=== PATIENT | male | born 1960 | race African-American/Black ===

== ENCOUNTER 2021-07-09 00:33 | Inpatient (IN) | payer OTHER ==
[2021-07-09] MEDS ORDERED: Ondansetron PF 4 MG/2 ML Vial IVP PRN (03:09)
[2021-07-09] MEDS ORDERED: Ondansetron ODT 4 MG TAB PO PRN (03:09)
[2021-07-09 03:28] VITALS: BMI 21.2
[2021-07-09] MEDS ORDERED: VANCOMYCIN 1.25 GM/250 ML BAG 1.25 GM in Premix Bag 1 BAG IVPB SCH (04:00)
[2021-07-09] MEDS ORDERED: Cefepime 2 GM in Sodium Chloride 0.9% 100 ML IVPB SCH (04:00)
[2021-07-09] MEDS ORDERED: Electrolyte Replacement Protocol 1 EACH FS PRN (04:15)
[2021-07-09 04:46] LABS: #Eosinphils 0.4 thou/uL (0.0-0.7); #Lymphocytes 1.3 thou/uL (1.20-3.40); #Monocytes 0.7 thou/uL (0.11-0.59); #Neutrophils 2.6 thou/uL (1.40-6.50); %Basophils 0.7 % (0.0-1.0); %Eosinophils 7.6 % (0.0-10.0); %Lymphocytes 25.7 % (21.0-51.0); %Monocytes 14.6 % (0.0-10.0); %Neutrophils 51.4 % (42.0-75.0); Hemoglobin 10.3 g/dL (14.0-18.0); Mean Corpuscular HGB CONC 32.3 g/dL (32.0-36.0); Mean Corpuscular Volume 99.2 fL (78.0-98.0); Mean Platelet Volume 6.9 fL (7.4-10.4); Platelet Count 269 thou/uL (130-400); RBC Distribution Width 14.7 % (11.5-14.5); Red Blood Cell (RBC) Count 3.22 mill/uL (4.70-6.10); White Blood Cell (WBC) Count 5.1 thou/uL (4.8-10.8)
[2021-07-09 05:02] LABS: Phosphorus 3.9 mg/dL (2.3-4.7)
[2021-07-09 05:03] LABS: Anion Gap 12 mmol/L (10-20); BUN (Urea Nitrogen) 7 mg/dL (8.4-25.7); CRP (Inflammatory) 1.83 mg/dL (= or < 0.5); Calc. Creatinine Clearance 110 mL/min (70-130); Calcium 9.5 mg/dL (7.8-10.44); Carbon Dioxide 25 mmol/L (23-31); Chloride 99 mmol/L (98-107); Glucose 131 mg/dL (80-115); Magnesium 1.5 mg/dL (1.6-2.6); Potassium 3.8 mmol/L (3.5-5.1); Sodium 132 mmol/L (136-145)
[2021-07-09] MEDS ORDERED: Magnesium 2 GM/50 ML 2 GM in Premix Bag 1 BAG IVPB SCH (05:30)
[2021-07-09] MEDS ORDERED: FLU VACC QS2021-22(6MOS UP)/PF 60 MCG/0.5 ML SYRINGE IM ONE (09:00)
[2021-07-09 11:52] LABS: Bacteria/HPF None Seen HPF (None Seen); Bilirubin Negative (Negative); Blood, Urine Negative (Negative); Clarity Clear (Clear); Glucose, Urine (Dipstick) Normal (Negative); Ketone, Urine Negative (Negative); Leukocyte Negative Leu/uL (Negative); Nitrite Negative (Negative); Protein, Urine (Dipstick) Negative (Neg-Trace); RBC/HPF 0-3 HPF (0-3); Specific Gravity, Urine 1.014 (1.002-1.036); Squamous Epithelial 0-3 HPF (0-3); Urobilinogen Normal mg/dL (Less than 2); WBC/HPF 0-3 HPF (0-3)
[2021-07-09 11:55] LABS: Urine Culture Reflex No No
[2021-07-09 12:02] LABS: Amphetamine Not Detected (NotDetected); Barbiturates Screen Not Detected (NotDetected); Benzodiazepine Screen Not Detected (NotDetected); Cocaine Metabolite Screen Detected (NotDetected); Methadone Not Detected (NotDetected); Methamphetamine Not Detected (NotDetected); Opiate Screen Not Detected (NotDetected); Oxycodone Screen Not Detected (NotDetected); Phencyclidine (PCP) Not Detected (NotDetected); THC/Cannabinoid Screen Not Detected (NotDetected); Tricyclic Screen Not Detected (NotDetected)
[2021-07-09] MEDS: Cefepime 2 GM in Sodium Chloride 0.9% 100 ML IVPB SCH ×2 (12:23→21:14)
[2021-07-09] MEDS: Vancomycin 1 GM in Premix Bag 1 BAG IVPB SCH ×2 (13:52→21:15)
[2021-07-09 15:26] LABS: SARS-CoV-2 PCR by NAA Not Detected (NotDetected)
[2021-07-10] MEDS: Acetaminophen 325 MG TAB PO PRN ×2 (03:13→06:55)
[2021-07-10] MEDS ORDERED: Lorazepam 1 MG TAB PO PRN (04:01)
[2021-07-10] MEDS: Cefepime 2 GM in Sodium Chloride 0.9% 100 ML IVPB SCH ×3 (04:16→20:30)
[2021-07-10] MEDS: Vancomycin 1 GM in Premix Bag 1 BAG IVPB SCH ×4 (04:16→20:30)
[2021-07-10 05:25] LABS: Hemoglobin 10.4 g/dL (14.0-18.0); Mean Corpuscular HGB CONC 33.8 g/dL (32.0-36.0); Mean Corpuscular Hemoglobin 33.5 pg (27.0-31.0); Mean Corpuscular Volume 99.2 fL (78.0-98.0); Mean Platelet Volume 6.7 fL (7.4-10.4); Platelet Count 284 thou/uL (130-400); RBC Distribution Width 14.3 % (11.5-14.5); Red Blood Cell (RBC) Count 3.09 mill/uL (4.70-6.10); White Blood Cell (WBC) Count 5.6 thou/uL (4.8-10.8)
[2021-07-10 05:44] LABS: Anion Gap 8 mmol/L (10-20); BUN (Urea Nitrogen) 11 mg/dL (8.4-25.7); CRP (Inflammatory) 1.87 mg/dL (= or < 0.5); Calc. Creatinine Clearance 114 mL/min (70-130); Calcium 9.1 mg/dL (7.8-10.44); Carbon Dioxide 25 mmol/L (23-31); Chloride 99 mmol/L (98-107); Glucose 119 mg/dL (80-115); Magnesium 1.7 mg/dL (1.6-2.6); Potassium 4.3 mmol/L (3.5-5.1); Sodium 128 mmol/L (136-145)
[2021-07-10] MEDS ORDERED: Magnesium 2 GM/50 ML 2 GM in Premix Bag 1 BAG IVPB SCH (06:00)
[2021-07-10 06:09] LABS: Eosinophils 3 % (0-10); Lymphocytes 34 % (21-51); MDiff Complete? YES; Monocytes 18 % (0-10); Neutrophil 45 % (42-75)
[2021-07-10 06:17] LABS: Vancomycin, Trough 35.5 ug/mL
[2021-07-10] MEDS ORDERED: Morphine 2 MG/ML VIAL SLOW IVP PRN (08:23)
[2021-07-10] MEDS ORDERED: Morphine 4 MG/ML VIAL SLOW IVP PRN (08:27)
[2021-07-10] MEDS ORDERED: Gadobenate Dimeglumine 529 MG/1 ML (20ML VIAL) ONE (11:24)
[2021-07-10 12:44] LABS: Vancomycin, Trough 18.2 ug/mL
[2021-07-10] MEDS: Lidocaine 5% Patch TD SCH (13:58)
[2021-07-10] MEDS: tiZANidine HCl 4 MG TAB PO SCH (20:30)
[2021-07-11] MEDS: Cefepime 2 GM in Sodium Chloride 0.9% 100 ML IVPB SCH ×3 (04:17→21:11)
[2021-07-11] MEDS: Vancomycin 1 GM in Premix Bag 1 BAG IVPB SCH ×3 (04:18→21:11)
[2021-07-11] MEDS: Lidocaine Patch Removal TOP SCH (04:24)
[2021-07-11 06:15] LABS: Hemoglobin 10.5 g/dL (14.0-18.0); Mean Corpuscular HGB CONC 32.8 g/dL (32.0-36.0); Mean Corpuscular Hemoglobin 32.6 pg (27.0-31.0); Mean Corpuscular Volume 99.5 fL (78.0-98.0); Mean Platelet Volume 6.6 fL (7.4-10.4); Platelet Count 307 thou/uL (130-400); RBC Distribution Width 14.3 % (11.5-14.5); Red Blood Cell (RBC) Count 3.22 mill/uL (4.70-6.10); White Blood Cell (WBC) Count 5.1 thou/uL (4.8-10.8)
[2021-07-11 06:39] LABS: Anion Gap 12 mmol/L (10-20); BUN (Urea Nitrogen) 10 mg/dL (8.4-25.7); Calc. Creatinine Clearance 110 mL/min (70-130); Calcium 9.3 mg/dL (7.8-10.44); Carbon Dioxide 23 mmol/L (23-31); Chloride 95 mmol/L (98-107); Glucose 99 mg/dL (80-115); Sodium 126 mmol/L (136-145)
[2021-07-11] MEDS: HYDROcodone/Acetaminophen 5/325 mg Tablet PO PRN (09:25)
[2021-07-11] MEDS: tiZANidine HCl 4 MG TAB PO SCH ×2 (09:25→21:11)
[2021-07-11] MEDS: Lidocaine 5% Patch TD SCH (09:29)
[2021-07-11 10:43] LABS: Band 1 % (5-11); Eosinophils 9 % (0-10); Lymphocytes 32 % (21-51); MDiff Complete? YES; Monocytes 15 % (0-10); Neutrophil 42 % (42-75); Platelet Morphology Comment Appears Adequate; Polychromasia SLIGHT = 2-3 cells (100X) (0-2/hpf)
[2021-07-11] MEDS ORDERED: Sodium Chloride 0.9% 1,000 ML IV SCH (12:45)
[2021-07-11 17:54] LABS: Potassium, Urine 30.4 mmol/L
[2021-07-12] MEDS: Lidocaine Patch Removal TOP SCH (03:54)
[2021-07-12] MEDS: Vancomycin 1 GM in Premix Bag 1 BAG IVPB SCH ×3 (04:27→20:14)
[2021-07-12] MEDS: Cefepime 2 GM in Sodium Chloride 0.9% 100 ML IVPB SCH ×3 (04:27→20:13)
[2021-07-12 05:02] LABS: Anion Gap 11 mmol/L (10-20); BUN (Urea Nitrogen) 12 mg/dL (8.4-25.7); Calc. Creatinine Clearance 107 mL/min (70-130); Calcium 9.6 mg/dL (7.8-10.44); Carbon Dioxide 23 mmol/L (23-31); Chloride 94 mmol/L (98-107); Glucose 102 mg/dL (80-115); Potassium 4.5 mmol/L (3.5-5.1); Sodium 123 mmol/L (136-145)
[2021-07-12 05:05] LABS: Eosinophils 1 % (0-10); Hemoglobin 11.2 g/dL (14.0-18.0); Hypochromia SLIGHT = 6-15 cells (100X) (0-5/hpf); Lymphocytes 17 % (21-51); MDiff Complete? YES; Mean Corpuscular Hemoglobin 33.5 pg (27.0-31.0); Mean Corpuscular Volume 98.4 fL (78.0-98.0); Mean Platelet Volume 6.4 fL (7.4-10.4); Monocytes 15 % (0-10); Neutrophil 67 % (42-75); Platelet Count 338 thou/uL (130-400); Platelet Morphology Comment Appears Adequate; RBC Distribution Width 14.3 % (11.5-14.5); Red Blood Cell (RBC) Count 3.34 mill/uL (4.70-6.10); White Blood Cell (WBC) Count 4.4 thou/uL (4.8-10.8)
[2021-07-12] MEDS: tiZANidine HCl 4 MG TAB PO SCH ×2 (09:26→20:13)
[2021-07-12] MEDS: HYDROcodone/Acetaminophen 5/325 mg Tablet PO PRN (09:26)
[2021-07-12] MEDS: Lidocaine 5% Patch TD SCH (09:27)
[2021-07-12 11:15] LABS: ALT (SGPT) Less than 7 U/L (8-55); AST (SGOT) 15 U/L (5-34); Albumin 3.5 g/dL (3.4-4.8); Alkaline Phosphatase 59 U/L (40-110); Anion Gap 11 mmol/L (10-20); BUN (Urea Nitrogen) 13 mg/dL (8.4-25.7); Bilirubin, Total 0.2 mg/dL (0.2-1.2); Calc. Creatinine Clearance 110 mL/min (70-130); Calcium 9.4 mg/dL (7.8-10.44); Carbon Dioxide 23 mmol/L (23-31); Chloride 94 mmol/L (98-107); Glucose 116 mg/dL (80-115); Potassium 4.7 mmol/L (3.5-5.1); Protein, Total 7.5 g/dL (5.8-8.1); Sodium 123 mmol/L (136-145)
[2021-07-12] MEDS ORDERED: Tolvaptan 15 MG TAB PO SCH (12:00)
[2021-07-12] MEDS ORDERED: TOLVAPTAN 30 MG TAB PO SCH (12:45)
[2021-07-12] MEDS: Lorazepam 0.5 MG TAB PO PRN (13:13)
[2021-07-13] MEDS: Lidocaine Patch Removal TOP SCH (03:44)
[2021-07-13] MEDS: Cefepime 2 GM in Sodium Chloride 0.9% 100 ML IVPB SCH ×3 (04:48→20:49)
[2021-07-13] MEDS: Vancomycin 1 GM in Premix Bag 1 BAG IVPB SCH ×3 (04:50→20:49)
[2021-07-13 05:19] LABS: Anion Gap 13 mmol/L (10-20); BUN (Urea Nitrogen) 22 mg/dL (8.4-25.7); Calc. Creatinine Clearance 87 mL/min (70-130); Calcium 10.6 mg/dL (7.8-10.44); Carbon Dioxide 24 mmol/L (23-31); Chloride 99 mmol/L (98-107); Glucose 94 mg/dL (80-115); Potassium 4.2 mmol/L (3.5-5.1); Sodium 132 mmol/L (136-145)
[2021-07-13] MEDS: tiZANidine HCl 4 MG TAB PO SCH ×2 (09:05→20:49)
[2021-07-13] MEDS: HYDROcodone/Acetaminophen 5/325 mg Tablet PO PRN (09:05)
[2021-07-13 12:30] LABS: Vancomycin, Trough 14.6 ug/mL
[2021-07-13] MEDS: Lidocaine 5% Patch TD SCH (12:38)
[2021-07-13] MEDS: Nicotine 21 MG PATCH TD SCH (12:38)
[2021-07-14] MEDS: Lidocaine Patch Removal TOP SCH (01:32)
[2021-07-14] MEDS: Vancomycin 1 GM in Premix Bag 1 BAG IVPB SCH ×2 (05:04→13:05)
[2021-07-14] MEDS: Cefepime 2 GM in Sodium Chloride 0.9% 100 ML IVPB SCH ×3 (05:05→20:04)
[2021-07-14 05:57] LABS: Anion Gap 11 mmol/L (10-20); BUN (Urea Nitrogen) 15 mg/dL (8.4-25.7); Calc. Creatinine Clearance 101 mL/min (70-130); Calcium 10.3 mg/dL (7.8-10.44); Carbon Dioxide 24 mmol/L (23-31); Chloride 103 mmol/L (98-107); Glucose 102 mg/dL (80-115); Potassium 4.1 mmol/L (3.5-5.1); Sodium 134 mmol/L (136-145)
[2021-07-14] MEDS: tiZANidine HCl 4 MG TAB PO SCH ×2 (08:09→20:16)
[2021-07-14] MEDS: HYDROcodone/Acetaminophen 5/325 mg Tablet PO PRN (10:15)
[2021-07-14] MEDS: Lidocaine 5% Patch TD SCH (13:05)
[2021-07-14] MEDS: Nicotine 21 MG PATCH TD SCH (13:05)
[2021-07-14 20:20] LABS: Vancomycin, Trough 22.1 ug/mL
[2021-07-14] MEDS: Vancomycin HCl 750 MG in Sodium Chloride 0.9% 250 ML 250 ML IVPB SCH (21:51)
[2021-07-15] MEDS: Lidocaine Patch Removal TOP SCH (01:18)
[2021-07-15] MEDS: Cefepime 2 GM in Sodium Chloride 0.9% 100 ML IVPB SCH ×3 (04:57→19:54)
[2021-07-15 05:06] LABS: Anion Gap 9 mmol/L (10-20); BUN (Urea Nitrogen) 14 mg/dL (8.4-25.7); Calc. Creatinine Clearance 112 mL/min (70-130); Calcium 10.1 mg/dL (7.8-10.44); Carbon Dioxide 24 mmol/L (23-31); Chloride 101 mmol/L (98-107); Glucose 91 mg/dL (80-115); Potassium 3.9 mmol/L (3.5-5.1); Sodium 130 mmol/L (136-145)
[2021-07-15] MEDS: Vancomycin HCl 750 MG in Sodium Chloride 0.9% 250 ML 250 ML IVPB SCH ×3 (06:36→22:34)
[2021-07-15] MEDS: tiZANidine HCl 4 MG TAB PO SCH ×2 (09:47→19:54)
[2021-07-15] MEDS: Lidocaine 5% Patch TD SCH (13:34)
[2021-07-15] MEDS: Nicotine 21 MG PATCH TD SCH (13:34)
[2021-07-15 21:30] LABS: Vancomycin, Trough 17.6 ug/mL
[2021-07-16] MEDS: Lidocaine Patch Removal TOP SCH (01:12)
[2021-07-16] MEDS: Cefepime 2 GM in Sodium Chloride 0.9% 100 ML IVPB SCH ×3 (04:06→20:34)
[2021-07-16 05:00] LABS: Anion Gap 10 mmol/L (10-20); BUN (Urea Nitrogen) 14 mg/dL (8.4-25.7); Calc. Creatinine Clearance 110 mL/min (70-130); Calcium 9.9 mg/dL (7.8-10.44); Carbon Dioxide 24 mmol/L (23-31); Chloride 102 mmol/L (98-107); Glucose 98 mg/dL (80-115); Sodium 132 mmol/L (136-145)
[2021-07-16] MEDS: Vancomycin HCl 750 MG in Sodium Chloride 0.9% 250 ML 250 ML IVPB SCH ×3 (05:56→20:34)
[2021-07-16] MEDS: tiZANidine HCl 4 MG TAB PO SCH ×2 (08:37→20:34)
[2021-07-16] MEDS: Nicotine 21 MG PATCH TD SCH (12:40)
[2021-07-16] MEDS: Lidocaine 5% Patch TD SCH (12:40)
[2021-07-16 21:48] LABS: Vancomycin, Trough 23.3 ug/mL
[2021-07-16] MEDS: Vancomycin 1 GM in Premix Bag 1 BAG IVPB SCH (23:06)
[2021-07-17] MEDS: Lidocaine Patch Removal TOP SCH (04:12)
[2021-07-17] MEDS: Cefepime 2 GM in Sodium Chloride 0.9% 100 ML IVPB SCH ×3 (04:12→20:45)
[2021-07-17 08:03] LABS: SARS-CoV-2 PCR by NAA Not Detected (NotDetected)
[2021-07-17] MEDS: tiZANidine HCl 4 MG TAB PO SCH ×2 (08:45→20:45)
[2021-07-17] MEDS: HYDROcodone/Acetaminophen 5/325 mg Tablet PO PRN (08:45)
[2021-07-17] MEDS: Lidocaine 5% Patch TD SCH (12:57)
[2021-07-17] MEDS: Vancomycin 1 GM in Premix Bag 1 BAG IVPB SCH ×2 (12:58→20:45)
[2021-07-17] MEDS: Nicotine 21 MG PATCH TD SCH (13:00)
[2021-07-18] MEDS: Lidocaine Patch Removal TOP SCH ×2 (04:37→20:12)
[2021-07-18] MEDS: Cefepime 2 GM in Sodium Chloride 0.9% 100 ML IVPB SCH (04:38)
[2021-07-18 07:36] LABS: Hemoglobin 10.7 g/dL (14.0-18.0); Mean Corpuscular HGB CONC 33.5 g/dL (32.0-36.0); Mean Corpuscular Hemoglobin 32.4 pg (27.0-31.0); Mean Corpuscular Volume 96.6 fL (78.0-98.0); Mean Platelet Volume 6.4 fL (7.4-10.4); Platelet Count 333 thou/uL (130-400); RBC Distribution Width 13.9 % (11.5-14.5); Red Blood Cell (RBC) Count 3.31 mill/uL (4.70-6.10); White Blood Cell (WBC) Count 5.5 thou/uL (4.8-10.8)
[2021-07-18 08:00] LABS: Anion Gap 14 mmol/L (10-20); BUN (Urea Nitrogen) 14 mg/dL (8.4-25.7); Calc. Creatinine Clearance 108 mL/min (70-130); Calcium 10.2 mg/dL (7.8-10.44); Carbon Dioxide 23 mmol/L (23-31); Chloride 98 mmol/L (98-107); Glucose 103 mg/dL (80-115); Sodium 131 mmol/L (136-145)
[2021-07-18 08:07] LABS: Band 4 % (5-11); Eosinophils 15 % (0-10); Lymphocytes 32 % (21-51); MDiff Complete? YES; Monocytes 17 % (0-10); Neutrophil 31 % (42-75); Platelet Morphology Comment Appears Adequate; Polychromasia SLIGHT = 2-3 cells (100X) (0-2/hpf)
[2021-07-18] MEDS: Amoxicillin/Potassium Clav 875 MG TAB PO SCH ×2 (09:05→20:10)
[2021-07-18] MEDS: tiZANidine HCl 4 MG TAB PO SCH ×2 (09:05→20:10)
[2021-07-18] MEDS: Nicotine 21 MG PATCH TD SCH (12:46)
[2021-07-18] MEDS: Lidocaine 5% Patch TD SCH (12:52)
[2021-07-19] MEDS: Amoxicillin/Potassium Clav 875 MG TAB PO SCH ×2 (08:55→20:44)
[2021-07-19] MEDS: Lorazepam 0.5 MG TAB PO PRN ×3 (08:55→19:24)
[2021-07-19] MEDS: tiZANidine HCl 4 MG TAB PO SCH ×2 (08:55→20:44)
[2021-07-19] MEDS: Lidocaine 5% Patch TD SCH (13:53)
[2021-07-19] MEDS: Nicotine 21 MG PATCH TD SCH (13:53)
[2021-07-19] MEDS ORDERED: diphenhydrAMINE 25 MG CAP PO SCH (21:16)
[2021-07-20] MEDS: Lidocaine Patch Removal TOP SCH (04:45)
[2021-07-20] MEDS: Amoxicillin/Potassium Clav 875 MG TAB PO SCH (08:18)
[2021-07-20] MEDS: Lorazepam 0.5 MG TAB PO PRN (08:18)
[2021-07-20] MEDS: tiZANidine HCl 4 MG TAB PO SCH ×2 (08:18→20:58)
[2021-07-20] MEDS: diphenhydrAMINE 25 MG CAP PO PRN ×2 (11:20→19:11)
[2021-07-20] MEDS: Lidocaine 5% Patch TD SCH (13:28)
[2021-07-20] MEDS: Nicotine 21 MG PATCH TD SCH (14:19)
[2021-07-20 15:27] LABS: ALT (SGPT) 13 U/L (8-55); AST (SGOT) 15 U/L (5-34); Albumin 3.7 g/dL (3.4-4.8); Alkaline Phosphatase 60 U/L (40-110); Bilirubin, Direct 0.1 mg/dL (0.1-0.3); Bilirubin, Total Less than 0.2 mg/dL (0.2-1.2); Protein, Total 7.7 g/dL (5.8-8.1)
[2021-07-20] MEDS: Sodium Chloride 0.9% 1,000 ML IV SCH (16:10)
[2021-07-21] MEDS: diphenhydrAMINE 25 MG CAP PO PRN ×3 (00:38→18:08)
[2021-07-21] MEDS: Lidocaine Patch Removal TOP SCH (00:40)
[2021-07-21] MEDS: Lorazepam 0.5 MG TAB PO PRN ×2 (03:04→20:05)
[2021-07-21] MEDS ORDERED: Loratadine 10 MG TAB PO SCH (08:30)
[2021-07-21] MEDS: tiZANidine HCl 4 MG TAB PO SCH ×2 (09:02→20:05)
[2021-07-21 10:27] LABS: Sodium 130 mmol/L (136-145)
[2021-07-21 10:31] LABS: Band 1 % (5-11); Eosinophils 8 % (0-10); Hemoglobin 10.6 g/dL (14.0-18.0); Lymphocytes 51 % (21-51); MDiff Complete? YES; Mean Corpuscular HGB CONC 33.5 g/dL (32.0-36.0); Mean Corpuscular Hemoglobin 32.6 pg (27.0-31.0); Mean Corpuscular Volume 97.2 fL (78.0-98.0); Mean Platelet Volume 6.4 fL (7.4-10.4); Monocytes 13 % (0-10); Neutrophil 25 % (42-75); Platelet Count 316 thou/uL (130-400); RBC Distribution Width 13.8 % (11.5-14.5); Red Blood Cell (RBC) Count 3.27 mill/uL (4.70-6.10); White Blood Cell (WBC) Count 4.1 thou/uL (4.8-10.8)
[2021-07-21] MEDS: Nicotine 21 MG PATCH TD SCH (13:44)
[2021-07-21] MEDS: Gabapentin 100 MG CAP PO SCH ×3 (13:51→20:06)
[2021-07-21] MEDS: Sodium Chloride 0.9% 1,000 ML IV SCH (14:15)
[2021-07-21] MEDS: Lidocaine 5% Patch TD SCH (14:30)
[2021-07-21] MEDS: Acetaminophen 325 MG TAB PO PRN (18:09)
[2021-07-22] MEDS: diphenhydrAMINE 25 MG CAP PO PRN ×2 (00:39→08:46)
[2021-07-22] MEDS: Lorazepam 0.5 MG TAB PO PRN (00:39)
[2021-07-22] MEDS: Lidocaine Patch Removal TOP SCH (00:53)
[2021-07-22] MEDS: Sodium Chloride 0.9% 1,000 ML IV SCH ×2 (08:39→22:49)
[2021-07-22] MEDS: tiZANidine HCl 4 MG TAB PO SCH ×2 (08:46→20:02)
[2021-07-22] MEDS: Gabapentin 100 MG CAP PO SCH ×3 (08:46→20:01)
[2021-07-22] MEDS ORDERED: Loratadine 10 MG TAB PO PRN (09:00)
[2021-07-22] MEDS: Nicotine 21 MG PATCH TD SCH (13:55)
[2021-07-22] MEDS: Lidocaine 5% Patch TD SCH (13:55)
[2021-07-23] MEDS: Lidocaine Patch Removal TOP SCH (00:59)
[2021-07-23] MEDS: Gabapentin 100 MG CAP PO SCH ×3 (08:03→20:41)
[2021-07-23] MEDS: tiZANidine HCl 4 MG TAB PO SCH ×2 (08:03→20:41)
[2021-07-23] MEDS: Thiamine 100 MG TAB PO SCH (09:30)
[2021-07-23] MEDS: Lidocaine 5% Patch TD SCH (13:35)
[2021-07-23] MEDS: Nicotine 21 MG PATCH TD SCH ×2 (13:35→21:53)
[2021-07-24] MEDS: Lidocaine Patch Removal TOP SCH (01:01)
[2021-07-24] MEDS: tiZANidine HCl 4 MG TAB PO SCH ×2 (08:36→20:16)
[2021-07-24] MEDS: Gabapentin 100 MG CAP PO SCH ×3 (08:36→20:15)
[2021-07-24] MEDS: Thiamine 100 MG TAB PO SCH (08:36)
[2021-07-24] MEDS: Lidocaine 5% Patch TD SCH (13:51)
[2021-07-24] MEDS: Nicotine 21 MG PATCH TD SCH (13:51)
[2021-07-24] MEDS: Acetaminophen 325 MG TAB PO PRN (20:15)
[2021-07-25] MEDS: Lidocaine Patch Removal TOP SCH (00:22)
[2021-07-25] MEDS: diphenhydrAMINE 25 MG CAP PO PRN ×2 (03:37→09:45)
[2021-07-25] MEDS: Gabapentin 100 MG CAP PO SCH ×3 (08:03→21:03)
[2021-07-25] MEDS: Thiamine 100 MG TAB PO SCH (08:03)
[2021-07-25] MEDS: tiZANidine HCl 4 MG TAB PO SCH ×2 (08:03→21:03)
[2021-07-25] MEDS: Nicotine 21 MG PATCH TD SCH (13:06)
[2021-07-25] MEDS: Lidocaine 5% Patch TD SCH (14:13)
[2021-07-25 14:33] LABS: SARS-CoV-2 PCR by NAA Not Detected (NotDetected)
[2021-07-26] MEDS: Lidocaine Patch Removal TOP SCH (01:13)
[2021-07-26] MEDS: Gabapentin 100 MG CAP PO SCH ×3 (10:08→21:06)
[2021-07-26] MEDS: Thiamine 100 MG TAB PO SCH (10:08)
[2021-07-26] MEDS: tiZANidine HCl 4 MG TAB PO SCH ×2 (10:09→21:06)
[2021-07-26] MEDS: Lidocaine 5% Patch TD SCH (13:50)
[2021-07-26] MEDS: Nicotine 21 MG PATCH TD SCH (13:50)
[2021-07-27] MEDS: Lidocaine Patch Removal TOP SCH (05:29)
[2021-07-27] MEDS: Thiamine 100 MG TAB PO SCH (09:13)
[2021-07-27] MEDS: Gabapentin 100 MG CAP PO SCH ×3 (09:13→20:34)
[2021-07-27] MEDS: tiZANidine HCl 4 MG TAB PO SCH ×2 (09:13→20:33)
[2021-07-27] MEDS: Lidocaine 5% Patch TD SCH (14:40)
[2021-07-27] MEDS: Nicotine 21 MG PATCH TD SCH (14:40)
[2021-07-28] MEDS: Lidocaine Patch Removal TOP SCH (01:21)
[2021-07-28] MEDS: tiZANidine HCl 4 MG TAB PO SCH ×2 (09:09→20:25)
[2021-07-28] MEDS: Gabapentin 100 MG CAP PO SCH ×3 (09:09→20:25)
[2021-07-28] MEDS: Thiamine 100 MG TAB PO SCH (09:10)
[2021-07-28] MEDS: Acetaminophen 325 MG TAB PO PRN (09:11)
[2021-07-28] MEDS: Lidocaine 5% Patch TD SCH (14:01)
[2021-07-28] MEDS: Nicotine 21 MG PATCH TD SCH (14:04)
[2021-07-29] MEDS: Lidocaine Patch Removal TOP SCH (01:50)
[2021-07-29 08:31] VITALS: BP 110/71; TEMP 98.9
[2021-07-29] MEDS: tiZANidine HCl 4 MG TAB PO SCH (09:29)
[2021-07-29] MEDS: Thiamine 100 MG TAB PO SCH (09:29)
[2021-07-29] MEDS: Gabapentin 100 MG CAP PO SCH ×2 (09:29→15:13)
[2021-07-29] MEDS: Lidocaine 5% Patch TD SCH (13:43)
[2021-07-29] MEDS: Nicotine 21 MG PATCH TD SCH (13:45)
== END 2021-07-29 16:15 | DRG 540 ==
LOC: MSONC 02:21
PROVIDERS: ADMIT Student in an Organized Health Care Education/Training Program; ATTEND Internal Medicine
DX: M86.8X7 Other osteomyelitis, ankle and foot (principal); I50.32 Chronic diastolic (congestive) heart failure; E87.1 Hypo-osmolality and hyponatremia; I42.8 Other cardiomyopathies; Z20.822 Contact with and (suspected) exposure to COVID-19; L97.529 Non-pressure chronic ulcer of other part of left foot with unspecified severity; I11.0 Hypertensive heart disease with heart failure; F10.20 Alcohol dependence, uncomplicated; D53.9 Nutritional anemia, unspecified; G62.9 Polyneuropathy, unspecified; I73.9 Peripheral vascular disease, unspecified; M54.50 Low back pain, unspecified; M47.816 Spondylosis without myelopathy or radiculopathy, lumbar region; G89.29 Other chronic pain; E87.8 Other disorders of electrolyte and fluid balance, not elsewhere classified; D63.8 Anemia in other chronic diseases classified elsewhere; F19.10 Other psychoactive substance abuse, uncomplicated; F14.10 Cocaine abuse, uncomplicated; M48.061 Spinal stenosis, lumbar region without neurogenic claudication; M51.36 Other intervertebral disc degeneration, lumbar region; L97.519 Non-pressure chronic ulcer of other part of right foot with unspecified severity; Z28.21 Immunization not carried out because of patient refusal; Z79.899 Other long term (current) drug therapy; Z79.82 Long term (current) use of aspirin; Z98.890 Other specified postprocedural states; Z59.02 Unsheltered homelessness; Z91.19 Patient's noncompliance with other medical treatment and regimen; Z71.41 Alcohol abuse counseling and surveillance of alcoholic; Z71.6 Tobacco abuse counseling; Z71.51 Drug abuse counseling and surveillance of drug abuser; Z91.14 Patient's other noncompliance with medication regimen
CPT/HCPCS: 36415; 72158; 80048; 80076; 80202; 80306; 81001; 82436; 83605; 83735; 83930; 83935; 84100; 84133; 84295; 84300; 84425; 85025; 85652; 86140; A9577; J0692; J3370; J3411; J3475; J3490; J7050; U0003; U0005